=== PATIENT | female | born 1975 | race Caucasian/White ===

== ENCOUNTER 2024-07-05 14:30 | Emergency (ER) | payer OTHER ==
[~2024-07-05] VITALS: Ht 157.5 cm; Wt 76.2 kg
[2024-07-05 15:47] VITALS: BP 112/51; PULSE 74; RESP 15; TEMP 98.8; O2SAT 98
[2024-07-05] MEDS ORDERED: DIPH25TA53 PO (16:28)
[2024-07-05] MEDS ORDERED: PRED20TA5 PO (16:28)
[2024-07-05] MEDS: FAMOTIDINE 20 MG TAB PO ONE (17:08)
[2024-07-05] MEDS: predniSONE 20 MG TAB PO ONE (17:08)
== END 2024-07-05 17:10 | disposition home or self-care (01) ==
LOC: EDBD 14:30 → MED 14:30
DX: R21 Rash and other nonspecific skin eruption (principal); L29.9 Pruritus, unspecified; Z79.899 Other long term (current) drug therapy
CPT/HCPCS: 99284; J7512; Q0163